=== PATIENT | female | born 1990 | race African-American/Black ===

== ENCOUNTER 2016-08-07 00:06 | Emergency (ER) | payer OTHER ==
[~2016-08-07] VITALS: Ht 162.6 cm; Wt 54.0 kg
[~2016-08-07 00:06] MED LIST: PREN1TAB49 PO; PRENATAL VIT
[2016-08-07 00:10] VITALS: BP 117/66
[2016-08-07] MEDS ORDERED: IBUPROFEN 600MG TABLET PO ONE (01:30)
== END 2016-08-07 02:00 | disposition home or self-care (01) ==
LOC: ER 00:07
DX: F41.0 Panic disorder [episodic paroxysmal anxiety] (principal); J45.909 Unspecified asthma, uncomplicated; F43.9 Reaction to severe stress, unspecified
CPT/HCPCS: 99284